=== PATIENT | female | born 1960 | race African-American/Black ===

== ENCOUNTER 2017-06-20 12:39 | Inpatient (IN) | payer MEDICARE, MEDICAID ==
[~2017-06-20] VITALS: Ht 170.2 cm; Wt 97.7 kg
[2017-06-20 13:27] LABS: BASOPHILS % 0.8 % (0.0-2.0); EOSINOPHILS % 3.6 % (0.0-5.0); HEMATOCRIT. 39.8 % (36.0-48.0); HEMOGLOBIN. 13.1 g/dL (12.0-16.0); LYMPHOCYTES % 23.6 % (20.0-50.0); MEAN CORPUSCULAR HEMOGLOBIN 27.1 pg (28.0-32.0); MEAN CORPUSCULAR VOLUME 82.1 fL (81.0-99.0); MEAN PLATELET VOLUME 9.1 fl (7.4-10.4); MONOCYTES % 5.3 % (2.0-8.0); NEUTROPHILS % 66.7 % (40.0-76.0); PLATELET 239 x1000/uL (130-400); RED BLOOD CELL COUNT 4.85 mill/uL (4.2-5.4); RED CELL DISTRIBUTION WIDTH 15.3 % (11.6-14.6)
[2017-06-20 13:34] LABS: INR 1.1; PROTHROMBIN TIME 11.1 sec (9.4-11.6)
[2017-06-20 13:41] LABS: CARBON DIOXIDE 26 mEq/L (21-32); CHLORIDE 109 mEq/L (98-107); TROPONIN I 0.02 ng/mL (0.00-0.04)
[2017-06-20] MEDS ORDERED: SODIUM CHLORIDE 0.45% 1,000 ML IV SCH (17:53)
[2017-06-20] MEDS ORDERED: DIPHENHYDRAMINE 50MG/ML VIAL IV PRN (18:00)
[2017-06-20] MEDS ORDERED: ONDANSETRON HCL 4MG/2ML VIAL IV PRN (18:00)
[2017-06-20] MEDS ORDERED: MAGNESIUM/ALUMINUM HYDROXIDE/SIMETHICONE 30ML UDC PO PRN (18:00)
[2017-06-20] MEDS ORDERED: ACETAMINOPHEN 325MG TABLET PO PRN ×2 (18:00→23:00)
[2017-06-20] MEDS ORDERED: DOCUSATE SODIUM 100MG CAPSULE PO PRN (18:00)
[2017-06-20] MEDS ORDERED: HYDROCODONE/ACETAMINOPHEN 5/325MG TABLET PO PRN (18:00)
[2017-06-20] MEDS ORDERED: NA PHOS,M-B/NA PHOS,DI-BA ENEMA 118ML PR PRN (18:00)
[2017-06-20] MEDS ORDERED: IPRATROPIUM/ALBUTEROL 0.5-3(2.5)MG/3ML NEB INH PRN (18:00)
[2017-06-20] MEDS ORDERED: GUAIFENESIN 200MG/10ML SUGAR FREE UDC PO PRN (18:00)
[2017-06-20] MEDS ORDERED: ENOXAPARIN 40MG/0.4ML SYR SUBCUT SCH (18:00)
[2017-06-20] MEDS ORDERED: LORAZEPAM 0.5MG TABLET PO PRN (18:30)
[2017-06-20] MEDS ORDERED: HYDROMORPHONE HCL/PF 2MG/ML CPJ IV PRN (19:00)
[2017-06-20] MEDS: CLONIDINE 0.1MG TABLET PO PRN (19:19)
[2017-06-20 20:00] VITALS: BP 184/87
[2017-06-20] MEDS ORDERED: DEXTROSE 50% WATER 50ML SYRINGE IV PRN (20:45)
[2017-06-20] MEDS: BLOOD SUGAR DIAGNOSTIC STRIP TEST SCH (20:52)
[2017-06-20] MEDS: INSULIN LISPRO 100 UNITS/ML SUBCUT SCH (21:00)
[2017-06-20] MEDS: ENOXAPARIN 30MG/0.3ML SYR SUBCUT SCH (22:40)
[2017-06-20] MEDS ORDERED: DICLOFENAC SODIUM 100 GM TP PRN (23:00)
[2017-06-20] MEDS ORDERED: SENNOSIDES 8.6MG TABLET PO PRN (23:00)
[2017-06-20] MEDS ORDERED: SENN8.6T71 PO (23:10)
[2017-06-20] MEDS ORDERED: DICL100G16 TP (23:10)
[2017-06-20] MEDS ORDERED: ACET-2178 PO (23:10)
[2017-06-20] MEDS ORDERED: CALC-61 PO (23:10)
[2017-06-20] MEDS ORDERED: PARO-66 PO (23:10)
[2017-06-20] MEDS ORDERED: OXYB5TAB11 PO (23:10)
[2017-06-20] MEDS ORDERED: SITA50TA3 PO (23:17)
[2017-06-20] MEDS ORDERED: KDUR10 PO ×2 (23:17→23:18)
[2017-06-20] MEDS ORDERED: APIX5TAB PO (23:18)
[2017-06-20] MEDS ORDERED: TRAZ-129 PO (23:18)
[2017-06-20] MEDS ORDERED: HYDR100T26 PO (23:18)
[2017-06-20] MEDS: AMLODIPINE 10MG TABLET PO SCH (23:41)
[2017-06-20] MEDS: LISINOPRIL 10MG TABLET PO SCH (23:41)
[2017-06-21] VITALS: BP 159/77
[2017-06-21] MEDS: TRAZODONE HCL 50MG TABLET PO PRN (00:44)
[2017-06-21 04:00] VITALS: BP 149/82
[2017-06-21] MEDS: HYDRALAZINE HCL 50MG TABLET PO SCH ×3 (05:45→22:16)
[2017-06-21] MEDS: BLOOD SUGAR DIAGNOSTIC STRIP TEST SCH ×4 (05:48→21:06)
[2017-06-21] MEDS: INSULIN LISPRO 100 UNITS/ML SUBCUT SCH ×4 (05:48→21:00)
[2017-06-21] MEDS ORDERED: MAGNESIUM 2 G PREMIX 50 ML IV ONE (07:15)
[2017-06-21 08:00] VITALS: BP 166/75
[2017-06-21 08:22] LABS: BASOPHILS % 0.6 % (0.0-2.0); HEMATOCRIT. 38.9 % (36.0-48.0); LYMPHOCYTES % 29.4 % (20.0-50.0); MEAN CORPUSCULAR HEMOGLOBIN 27.2 pg (28.0-32.0); MEAN CORPUSCULAR VOLUME 81.6 fL (81.0-99.0); MEAN PLATELET VOLUME 9.4 fl (7.4-10.4); MONOCYTES % 6.7 % (2.0-8.0); NEUTROPHILS % 59.3 % (40.0-76.0); PLATELET 228 x1000/uL (130-400); RED BLOOD CELL COUNT 4.77 mill/uL (4.2-5.4); RED CELL DISTRIBUTION WIDTH 14.8 % (11.6-14.6)
[2017-06-21] MEDS: CALCIUM CARBONATE/VITAMIN D3 500MG TABLET PO SCH (08:44)
[2017-06-21] MEDS: PAROXETINE HCL 20MG TABLET PO SCH (08:44)
[2017-06-21] MEDS: ENOXAPARIN 30MG/0.3ML SYR SUBCUT SCH ×2 (08:44→21:24)
[2017-06-21] MEDS: POTASSIUM CHLORIDE 10MEQ TABLET SR PO SCH (08:45)
[2017-06-21] MEDS: LISINOPRIL 10MG TABLET PO SCH ×2 (08:45→21:07)
[2017-06-21] MEDS: OXYBUTYNIN CHLORIDE 5MG TABLET PO SCH ×2 (08:45→18:19)
[2017-06-21] MEDS: LINAGLIPTIN 5MG TABLET PO SCH (08:46)
[2017-06-21] MEDS: AMLODIPINE 10MG TABLET PO SCH (08:46)
[2017-06-21 08:47] LABS: CARBON DIOXIDE 24 mEq/L (21-32); CHLORIDE 109 mEq/L (98-107); HDL CHOLESTEROL 60 mg/dL (40-59); LDL CHOLESTEROL 124 mg/dL (5-100); TROPONIN I 0.05 ng/mL (0.00-0.04)
[2017-06-21] MEDS ORDERED: POTASSIUM CHLORIDE 10MEQ TABLET SR PO SCH (09:00)
[2017-06-21] MEDS ORDERED: ASPIRIN 81MG EC TABLET PO SCH (09:00)
[2017-06-21] MEDS ORDERED: APIXABAN 5 MG TABLET PO SCH (09:00)
[2017-06-21] MEDS ORDERED: CALCIUM CARBONATE PO SCH (09:00)
[2017-06-21] MEDS ORDERED: VITAMIN D3 PO SCH (09:00)
[2017-06-21] MEDS ORDERED: MEDICATION NOT ON FORMULARY EA (Sitagliptin Phosphate (Januvia) 1 TAB) PO SCH (09:00)
[2017-06-21] MEDS ORDERED: [UNRECOGNIZED DRUG - OTHER] PO SCH (09:00)
[2017-06-21] MEDS ORDERED: LIDOCAINE HCL 4% CREAM 76GM TUBE TP PRN (10:15)
[2017-06-21 10:50] LABS: CREATINE KINASE 110 IU/L (26-192)
[2017-06-21 12:00] VITALS: BP 168/49
[2017-06-21] MEDS ORDERED: REGADENOSON 0.4 MG/5 ML IV NR (12:30)
[2017-06-21 15:24] LABS: CLARITY URINE CLEAR (CLEAR); COLOR URINE YELLOW (YELLOW); GLUCOSE URINE TRACE (NEGATIVE); KETONES URINE TRACE (NEGATIVE); LEUKOCYTE ESTERASE URINE TRACE (NEGATIVE); NITRITE URINE NEGATIVE (NEGATIVE); OCCULT BLOOD URINE NEGATIVE (NEGATIVE); PH URINE 7.5 (4.5-8.0); PROTEIN URINE 4+ (NEGATIVE); SPECIFIC GRAVITY URINE 1.019 (1.005-1.030); UROBILINOGEN URINE 0.2 E.U./dL (0.2-1.0)
[2017-06-21 16:00] VITALS: BP 120/90
[2017-06-21 16:51] LABS: CREATINE KINASE MB FRACTION 1.6 ng/mL (0.5-3.6); TROPONIN I 0.03 ng/mL (0.00-0.04)
[2017-06-21 16:57] LABS: T4 FREE 1.49 ng/dL (0.76-1.46)
[2017-06-21 20:00] VITALS: BP 137/70
[2017-06-21] MEDS ORDERED: TRAZODONE HCL 50MG TABLET PO SCH (21:00)
[2017-06-21] MEDS: ATORVASTATIN CALCIUM 20MG TABLET PO SCH (21:07)
[2017-06-21 23:23] LABS: CREATINE KINASE MB FRACTION 1.5 ng/mL (0.5-3.6); TROPONIN I 0.04 ng/mL (0.00-0.04)
[2017-06-22] VITALS: BP 157/88
[2017-06-22] MEDS: TRAZODONE HCL 50MG TABLET PO PRN ×2 (02:32→23:18)
[2017-06-22 04:00] VITALS: BP 148/76
[2017-06-22] MEDS: HYDRALAZINE HCL 50MG TABLET PO SCH ×3 (05:36→20:54)
[2017-06-22 06:33] LABS: TROPONIN I 0.05 ng/mL (0.00-0.04)
[2017-06-22 06:35] LABS: CREATINE KINASE MB FRACTION 1.4 ng/mL (0.5-3.6)
[2017-06-22 06:49] LABS: BASOPHILS % 0.5 % (0.0-2.0); EOSINOPHILS % 3.9 % (0.0-5.0); HEMATOCRIT. 37.9 % (36.0-48.0); HEMOGLOBIN. 12.6 g/dL (12.0-16.0); LYMPHOCYTES % 30.5 % (20.0-50.0); MEAN CORPUSCULAR HEMOGLOBIN 27.3 pg (28.0-32.0); MEAN CORPUSCULAR VOLUME 81.8 fL (81.0-99.0); MEAN PLATELET VOLUME 9.7 fl (7.4-10.4); MONOCYTES % 6.2 % (2.0-8.0); NEUTROPHILS % 58.9 % (40.0-76.0); PLATELET 229 x1000/uL (130-400); RED BLOOD CELL COUNT 4.63 mill/uL (4.2-5.4); RED CELL DISTRIBUTION WIDTH 14.8 % (11.6-14.6)
[2017-06-22] MEDS: BLOOD SUGAR DIAGNOSTIC STRIP TEST SCH ×4 (06:56→20:49)
[2017-06-22] MEDS: INSULIN LISPRO 100 UNITS/ML SUBCUT SCH ×4 (06:56→20:50)
[2017-06-22 08:00] VITALS: BP 168/76
[2017-06-22] MEDS: CLOPIDOGREL 75MG TABLET PO SCH (08:23)
[2017-06-22] MEDS: ENOXAPARIN 30MG/0.3ML SYR SUBCUT SCH ×2 (08:23→20:53)
[2017-06-22] MEDS: LINAGLIPTIN 5MG TABLET PO SCH (08:24)
[2017-06-22] MEDS: AMLODIPINE 10MG TABLET PO SCH (08:24)
[2017-06-22] MEDS: POTASSIUM CHLORIDE 10MEQ TABLET SR PO SCH (08:24)
[2017-06-22] MEDS: LISINOPRIL 10MG TABLET PO SCH ×2 (08:24→20:53)
[2017-06-22] MEDS: PAROXETINE HCL 20MG TABLET PO SCH (08:24)
[2017-06-22] MEDS: CALCIUM CARBONATE/VITAMIN D3 500MG TABLET PO SCH (08:24)
[2017-06-22] MEDS: ASPIRIN 81MG TABLET PO SCH (08:24)
[2017-06-22] MEDS: OXYBUTYNIN CHLORIDE 5MG TABLET PO SCH ×2 (08:24→17:45)
[2017-06-22 12:20] VITALS: BP 135/75
[2017-06-22 16:00] VITALS: BP 146/70
[2017-06-22 20:00] VITALS: BP 171/83
[2017-06-22] MEDS: ATORVASTATIN CALCIUM 20MG TABLET PO SCH (20:52)
[2017-06-23] VITALS: BP 157/80
[2017-06-23 04:00] VITALS: BP 180/95
[2017-06-23] MEDS: CLONIDINE 0.1MG TABLET PO PRN (04:17)
[2017-06-23] MEDS: HYDRALAZINE HCL 50MG TABLET PO SCH ×2 (07:03→13:47)
[2017-06-23] MEDS: INSULIN LISPRO 100 UNITS/ML SUBCUT SCH ×2 (07:04→12:15)
[2017-06-23] MEDS: BLOOD SUGAR DIAGNOSTIC STRIP TEST SCH ×2 (07:04→11:45)
[2017-06-23 08:00] VITALS: BP 162/91
[2017-06-23] MEDS: LINAGLIPTIN 5MG TABLET PO SCH (09:01)
[2017-06-23] MEDS: LISINOPRIL 10MG TABLET PO SCH (09:01)
[2017-06-23] MEDS: CLOPIDOGREL 75MG TABLET PO SCH (09:01)
[2017-06-23] MEDS: AMLODIPINE 10MG TABLET PO SCH (09:01)
[2017-06-23] MEDS: PAROXETINE HCL 20MG TABLET PO SCH (09:01)
[2017-06-23] MEDS: ENOXAPARIN 30MG/0.3ML SYR SUBCUT SCH (09:01)
[2017-06-23] MEDS: ASPIRIN 81MG TABLET PO SCH (09:02)
[2017-06-23] MEDS: OXYBUTYNIN CHLORIDE 5MG TABLET PO SCH (09:02)
[2017-06-23] MEDS: POTASSIUM CHLORIDE 10MEQ TABLET SR PO SCH (09:02)
[2017-06-23] MEDS: CALCIUM CARBONATE/VITAMIN D3 500MG TABLET PO SCH (09:02)
[2017-06-23 12:00] VITALS: BP 154/83
[2017-06-23 13:05] VITALS: BP 154/83
[2017-06-23 19:12] LABS: ANTI-NUCLEAR ANTIBODIES DIRECT Negative (Negative)
[2017-06-24 05:25] LABS: COMPLEMENT C3 131 mg/dL (82-167)
== END 2017-06-23 17:00 | DRG 70 ==
LOC: ER 13:10 → ENRESERV 18:19 → 5WST 19:36
PROVIDERS: ADMIT Internal Medicine; ATTEND Internal Medicine
DX: G93.41 Metabolic encephalopathy (principal); N17.0 Acute kidney failure with tubular necrosis; E46 Unspecified protein-calorie malnutrition; I13.0 Hypertensive heart and chronic kidney disease with heart failure and stage 1 through stage 4 chronic kidney disease, or unspecified chronic kidney disease; I69.354 Hemiplegia and hemiparesis following cerebral infarction affecting left non-dominant side; R47.01 Aphasia; I50.9 Heart failure, unspecified; E11.22 Type 2 diabetes mellitus with diabetic chronic kidney disease; N18.3 Chronic kidney disease, stage 3 (moderate); D64.9 Anemia, unspecified; E11.65 Type 2 diabetes mellitus with hyperglycemia; E78.5 Hyperlipidemia, unspecified; Z79.899 Other long term (current) drug therapy; Z68.33 Body mass index [BMI] 33.0-33.9, adult
CPT/HCPCS: 36415; 70450; 70551; 71010; 76770; 80048; 80053; 80061; 81001; 82550; 82553; 82962; 83036; 83735; 83880; 84439; 84443; 84484; 85025; 85379; 85610; 86038; 86160; 93005; 93306; 93880; 93970; 99285; J1650; J1815